=== PATIENT | female | born 1990 | race Caucasian/White ===

== ENCOUNTER 2023-02-07 06:55 | Day surgery (SDC) | payer OTHER ==
[~2023-02-07 06:55] MED LIST: COLACE100 MG PO; INTESTINEX1 CA1 PO; PERCOCET 5/3251 TAB PO; RECTICARE30 GM TP
== END 2023-02-07 10:20 | disposition home or self-care (01) ==
LOC: AMB-ENDOS 06:55
PROVIDERS: ATTEND Surgery
DX: K62.89 Other specified diseases of anus and rectum (principal); K61.0 Anal abscess; R10.84 Generalized abdominal pain; Z20.822 Contact with and (suspected) exposure to COVID-19

== ENCOUNTER 2024-05-17 11:46 | Outpatient (CLI) | payer OTHER | END 2024-05-17 11:47 | disposition home or self-care (01) | LOC: PRENATAL 11:46 | PROVIDERS: ATTEND Obstetrics & Gynecology Maternal & Fetal Medicine | DX: O26.849 Uterine size-date discrepancy, unspecified trimester (principal); O26.879 Cervical shortening, unspecified trimester; O36.8199 Decreased fetal movements, unspecified trimester, other fetus; O99.891 Other specified diseases and conditions complicating pregnancy; O99.019 Anemia complicating pregnancy, unspecified trimester; O41.00X0 Oligohydramnios, unspecified trimester, not applicable or unspecified; Z3A.35 35 weeks gestation of pregnancy ==